=== PATIENT | male | born 2000 | race Two or more races ===

== ENCOUNTER 2021-06-24 07:56 | Emergency (ER) | payer OTHER ==
[~2021-06-24] VITALS: Ht 172.7 cm; Wt 83.9 kg
[2021-06-24 08:12] VITALS: BP 158/89
== END 2021-06-24 09:48 | disposition home or self-care (01) ==
LOC: ER 07:56
DX: S02.2XXA Fracture of nasal bones, initial encounter for closed fracture (principal); F17.210 Nicotine dependence, cigarettes, uncomplicated; Z88.0 Allergy status to penicillin; Y04.2XXA Assault by strike against or bumped into by another person, initial encounter; Y93.89 Activity, other specified; Y92.89 Other specified places as the place of occurrence of the external cause; Y99.8 Other external cause status
CPT/HCPCS: 70160